=== PATIENT | female | born 1940 | race Asian ===

== ENCOUNTER 2020-11-14 18:52 | Emergency (ER) | payer MEDICARE ==
[2020-11-14 19:44] LABS: #Eosinphils 0.1 thou/uL (0.0-0.7); #Lymphocytes 1.6 thou/uL (1.20-3.40); #Monocytes 0.5 thou/uL (0.11-0.59); #Neutrophils 3.6 thou/uL (1.40-6.50); %Basophils 0.5 % (0.0-1.0); %Eosinophils 0.9 % (0.0-10.0); %Lymphocytes 27.9 % (21.0-51.0); %Monocytes 8.6 % (0.0-10.0); %Neutrophils 62.1 % (42.0-75.0); Hemoglobin 11.3 g/dL (12.0-16.0); Mean Corpuscular HGB CONC 31.1 g/dL (32.0-36.0); Mean Corpuscular Hemoglobin 23.5 pg (27.0-31.0); Mean Corpuscular Volume 75.7 fL (78.0-98.0); Mean Platelet Volume 8.3 fL (7.4-10.4); Platelet Count 288 thou/uL (130-400); RBC Distribution Width 13.3 % (11.5-14.5); Red Blood Cell (RBC) Count 4.79 mill/uL (4.20-5.40); White Blood Cell (WBC) Count 5.7 thou/uL (4.8-10.8)
[2020-11-14 19:50] LABS: PTT 33.3 sec (22.9-36.1)
[2020-11-14 20:13] LABS: ALT (SGPT) 18 U/L (8-55); AST (SGOT) 17 U/L (5-34); Albumin 3.5 g/dL (3.4-4.8); Alkaline Phosphatase 152 U/L (40-110); Anion Gap 13 mmol/L (10-20); BUN (Urea Nitrogen) 18 mg/dL (9.8-20.1); Bilirubin, Total 0.3 mg/dL (0.2-1.2); CK (CPK) 109 U/L (29-168); Calc. Creatinine Clearance 0 mL/min (70-130); Calcium 8.6 mg/dL (7.8-10.44); Carbon Dioxide 23 mmol/L (23-31); Chloride 108 mmol/L (98-107); Globulin 3.5 g/dL (2.4-3.5); Glucose 104 mg/dL (83-110); Lipase 27 U/L (8-78); Magnesium 2.2 mg/dL (1.6-2.6); Potassium 3.9 mmol/L (3.5-5.1); Sodium 140 mmol/L (136-145)
[2020-11-14 20:38] LABS: Bacteria/HPF 2+ HPF (None Seen); Bilirubin Negative (Negative); Blood, Urine Negative (Negative); Clarity Turbid (Clear); Glucose, Urine (Dipstick) Normal (Negative); Ketone, Urine Trace mg/dL (Negative); Leukocyte 25 Leu/uL (Negative); Nitrite 2+ (Negative); Protein, Urine (Dipstick) 10 mg/dL (Neg-Trace); RBC/HPF 0-3 HPF (0-3); Specific Gravity, Urine 1.027 (1.002-1.036); Squamous Epithelial 0-3 HPF (0-3); Urobilinogen Normal mg/dL (Less than 2)
== END 2020-11-14 23:57 ==
LOC: ERS 18:52
DX: S00.03XA Contusion of scalp, initial encounter (principal); N39.0 Urinary tract infection, site not specified; I10 Essential (primary) hypertension; W19.XXXA Unspecified fall, initial encounter
CPT/HCPCS: 36415; 51701; 70450; 71045; 72125; 80053; 81003; 81015; 82550; 83690; 83735; 85025; 85610; 85730; 87077; 87086; 87186; 93005

== ENCOUNTER 2020-11-21 09:49 | Emergency (ER) | payer MEDICARE | END 2020-11-21 11:10 | disposition home or self-care (01) | LOC: ERS 09:49 | DX: N39.0 Urinary tract infection, site not specified (principal); F03.90 Unspecified dementia, unspecified severity, without behavioral disturbance, psychotic disturbance, mood disturbance, and anxiety; I10 Essential (primary) hypertension; Z79.899 Other long term (current) drug therapy | CPT/HCPCS: 99283 ==

== ENCOUNTER 2021-05-03 13:57 | Inpatient (IN) | payer MEDICARE ==
[~2021-05-03 13:57] MED LIST: Iopamidol-370 76% 500 ML 1 ML ONE
[2021-05-03 14:29] LABS: Mean Corpuscular HGB CONC 32.4 g/dL (32.0-36.0); Platelet Count 276 thou/uL (130-400); RBC Distribution Width 13.6 % (11.5-14.5); Red Blood Cell (RBC) Count 5.01 mill/uL (4.20-5.40); White Blood Cell (WBC) Count 10.2 thou/uL (4.8-10.8)
[2021-05-03 14:40] LABS: Bacteria/HPF 2+ HPF (None Seen); Bilirubin Negative (Negative); Blood, Urine Negative (Negative); Clarity Turbid (Clear); Glucose, Urine (Dipstick) Normal (Negative); Ketone, Urine Negative (Negative); Leukocyte 250 Leu/uL (Negative); Nitrite Negative (Negative); Protein, Urine (Dipstick) 50 mg/dL (Neg-Trace); Specific Gravity, Urine 1.015 (1.002-1.036); Squamous Epithelial 0-3 HPF (0-3); pH, Urine 6.5 (5.0-9.0)
[2021-05-03 14:41] LABS: #Eosinphils 0.1 thou/uL (0.0-0.7); #Lymphocytes 1.7 thou/uL (1.20-3.40); #Monocytes 0.5 thou/uL (0.11-0.59); #Neutrophils 7.9 thou/uL (1.40-6.50); %Eosinophils 0.6 % (0.0-10.0); %Lymphocytes 16.4 % (21.0-51.0); %Monocytes 5.2 % (0.0-10.0); %Neutrophils 77.7 % (42.0-75.0)
[2021-05-03 14:42] LABS: ALT (SGPT) 18 U/L (8-55); AST (SGOT) 23 U/L (5-34); Albumin 3.6 g/dL (3.4-4.8); Alkaline Phosphatase 119 U/L (40-110); Anion Gap 15 mmol/L (10-20); BUN (Urea Nitrogen) 16 mg/dL (9.8-20.1); Bilirubin, Total 0.3 mg/dL (0.2-1.2); Calc. Creatinine Clearance 0 mL/min (70-130); Calcium 8.2 mg/dL (7.8-10.44); Carbon Dioxide 18 mmol/L (23-31); Chloride 90 mmol/L (98-107); Globulin 3.4 g/dL (2.4-3.5); Glucose 140 mg/dL (83-110); Potassium 4.2 mmol/L (3.5-5.1)
[2021-05-03 14:45] LABS: MDiff Complete? YES; Mean Corpuscular Volume 74.3 fL (78.0-98.0); Microcytosis SLIGHT = 6-15 cells (100X) (0-5/hpf); Platelet Morphology Comment Appears Adequate
[2021-05-03 14:47] LABS: Sodium 119 mmol/L (136-145)
[2021-05-03] MEDS ORDERED: Cefepime 2 GM VIAL ONE (15:01)
[2021-05-03] MEDS ORDERED: Vancomycin 1 GM/200 ML BAG ONE (15:01)
[2021-05-03] MEDS ORDERED: Morphine 4 MG/ML VIAL ONE (15:16)
[2021-05-03 16:50] LABS: SARS-CoV-2 NAA Rapid Test Not Detected (NotDetected)
[2021-05-03 17:43] LABS: Lactic Acid 1.9 mmol/L (0.5-2.2)
[2021-05-03] MEDS ORDERED: Acetaminophen 325 MG TAB PO PRN (18:57)
[2021-05-03] MEDS ORDERED: Acetaminophen 650 MG Suppository PR PRN (18:57)
[2021-05-03 20:10] LABS: INR-International Normal Ratio 0.9; Prothrombin Time 12.6 sec (12.0-14.7)
[2021-05-03 20:18] LABS: Sodium 122 mmol/L (136-145)
[2021-05-03] MEDS: Sodium Chloride 1 GM TAB PO SCH (21:40)
[2021-05-03 22:24] LABS: Creatinine, Urine 48.21 mg/dL (47-110); Potassium, Urine 65.6 mmol/L
[2021-05-03 23:30] LABS: Sodium 122 mmol/L (136-145)
[2021-05-03 23:36] LABS: Anion Gap 11 mmol/L (10-20); BUN (Urea Nitrogen) 11 mg/dL (9.8-20.1); Calc. Creatinine Clearance 0 mL/min (70-130); Calcium 8.2 mg/dL (7.8-10.44); Carbon Dioxide 20 mmol/L (23-31); Chloride 96 mmol/L (98-107); Glucose 99 mg/dL (83-110); Potassium 4.3 mmol/L (3.5-5.1); Sodium 123 mmol/L (136-145)
[2021-05-04] MEDS: Cefepime 2 GM in Sodium Chloride 0.9% 100 ML IVPB SCH ×2 (03:31→15:42)
[2021-05-04 03:59] LABS: #Monocytes 0.4 thou/uL (0.11-0.59); #Neutrophils 5.7 thou/uL (1.40-6.50); %Eosinophils 0.3 % (0.0-10.0); %Lymphocytes 13.4 % (21.0-51.0); %Monocytes 5.6 % (0.0-10.0); %Neutrophils 80.7 % (42.0-75.0); Hemoglobin 11.7 g/dL (12.0-16.0); Mean Corpuscular HGB CONC 32.7 g/dL (32.0-36.0); Mean Corpuscular Volume 73.3 fL (78.0-98.0); Platelet Count 243 thou/uL (130-400); RBC Distribution Width 13.5 % (11.5-14.5); Red Blood Cell (RBC) Count 4.87 mill/uL (4.20-5.40)
[2021-05-04 04:16] LABS: Anion Gap 10 mmol/L (10-20); BUN (Urea Nitrogen) 10 mg/dL (9.8-20.1); Calc. Creatinine Clearance 50 mL/min (70-130); Calcium 8.6 mg/dL (7.8-10.44); Carbon Dioxide 22 mmol/L (23-31); Chloride 97 mmol/L (98-107); Glucose 100 mg/dL (83-110); Potassium 4.3 mmol/L (3.5-5.1); Sodium 125 mmol/L (136-145)
[2021-05-04 06:39] LABS: Iron 26 ug/dL (50-170); Iron Binding Capacity, Total 294 mcg/dL (265-497)
[2021-05-04] MEDS ORDERED: traMADol HCl 50 MG TAB PO PRN (07:25)
[2021-05-04] MEDS ORDERED: Bisacodyl 5 MG TAB PO PRN (07:25)
[2021-05-04] MEDS ORDERED: Loperamide HCl 2 MG CAP PO PRN (07:25)
[2021-05-04] MEDS ORDERED: Proctozone-HC 30 GM TUBE TOP PRN (07:45)
[2021-05-04] MEDS ORDERED: Mag-Al Plus 1200 MG/1200 MG/120 MG/30 ML UDCUP PO PRN (07:51)
[2021-05-04] MEDS: Enoxaparin Sodium 40 MG/0.4 ML SYRINGE SC SCH (09:54)
[2021-05-04 10:54] LABS: Anion Gap 12 mmol/L (10-20); BUN (Urea Nitrogen) 9 mg/dL (9.8-20.1); Calc. Creatinine Clearance 50 mL/min (70-130); Calcium 8.7 mg/dL (7.8-10.44); Carbon Dioxide 20 mmol/L (23-31); Chloride 98 mmol/L (98-107); Glucose 94 mg/dL (83-110); Potassium 4.4 mmol/L (3.5-5.1); Sodium 126 mmol/L (136-145)
[2021-05-04] MEDS: Losartan 25 MG TAB PO SCH (11:32)
[2021-05-04] MEDS: Docusate 100 MG CAP PO SCH ×2 (11:32→20:51)
[2021-05-04] MEDS: Sodium Chloride 1 GM TAB PO SCH (11:33)
[2021-05-04] MEDS: Polyethylene Glycol 3350 17 GM Packet PO SCH (11:33)
[2021-05-04] MEDS ORDERED: Sodium Chloride 1 GM TAB PO SCH (15:00)
[2021-05-04 16:23] LABS: Anion Gap 11 mmol/L (10-20); BUN (Urea Nitrogen) 9 mg/dL (9.8-20.1); Calc. Creatinine Clearance 50 mL/min (70-130); Calcium 8.7 mg/dL (7.8-10.44); Carbon Dioxide 23 mmol/L (23-31); Chloride 100 mmol/L (98-107); Glucose 96 mg/dL (83-110); Sodium 130 mmol/L (136-145)
[2021-05-04] MEDS ORDERED: Dextrose 5% in Water 500 ML IV SCH (17:15)
[2021-05-04] MEDS: Aripiprazole 2 MG TAB PO SCH (20:51)
[2021-05-04] MEDS: Senokot S 8.6-50 MG TAB PO SCH (20:52)
[2021-05-04 23:32] LABS: Anion Gap 13 mmol/L (10-20); Calcium 8.6 mg/dL (7.8-10.44); Carbon Dioxide 17 mmol/L (23-31); Chloride 100 mmol/L (98-107); Potassium 3.8 mmol/L (3.5-5.1); Sodium 126 mmol/L (136-145)
[2021-05-04 23:33] LABS: Glucose 103 mg/dL (83-110)
[2021-05-04 23:36] LABS: Calc. Creatinine Clearance 50 mL/min (70-130)
[2021-05-04 23:37] LABS: BUN (Urea Nitrogen) 10 mg/dL (9.8-20.1)
[2021-05-05] MEDS: Cefepime 2 GM in Sodium Chloride 0.9% 100 ML IVPB SCH (02:39)
[2021-05-05 05:31] LABS: Albumin 3.6 g/dL (3.4-4.8); Anion Gap 12 mmol/L (10-20); BUN (Urea Nitrogen) 11 mg/dL (9.8-20.1); BUN/Creatinine Ratio 14.29; Calc. Creatinine Clearance 45 mL/min (70-130); Calcium 8.9 mg/dL (7.8-10.44); Carbon Dioxide 22 mmol/L (23-31); Chloride 99 mmol/L (98-107); Glucose 104 mg/dL (83-110); Phosphorus 3.2 mg/dL (2.3-4.7); Potassium 3.8 mmol/L (3.5-5.1); Sodium 129 mmol/L (136-145)
[2021-05-05] MEDS: Aripiprazole 2 MG TAB PO SCH (10:52)
[2021-05-05] MEDS: Polyethylene Glycol 3350 17 GM Packet PO SCH (10:52)
[2021-05-05] MEDS: Sodium Bicarbonate Tab 325 MG TAB PO SCH ×3 (10:53→22:09)
[2021-05-05] MEDS: Losartan 25 MG TAB PO SCH (10:53)
[2021-05-05] MEDS: Docusate 100 MG CAP PO SCH ×2 (10:54→22:09)
[2021-05-05] MEDS: Enoxaparin Sodium 40 MG/0.4 ML SYRINGE SC SCH (11:05)
[2021-05-05 11:35] LABS: Anion Gap 14 mmol/L (10-20); BUN (Urea Nitrogen) 11 mg/dL (9.8-20.1); Calc. Creatinine Clearance 46 mL/min (70-130); Calcium 9.1 mg/dL (7.8-10.44); Carbon Dioxide 19 mmol/L (23-31); Chloride 98 mmol/L (98-107); Glucose 99 mg/dL (83-110); Potassium 4.3 mmol/L (3.5-5.1); Sodium 127 mmol/L (136-145)
[2021-05-05] MEDS ORDERED: Sodium Chloride 1 GM TAB PO SCH (16:15)
[2021-05-05 18:22] LABS: Anion Gap 12 mmol/L (10-20); BUN (Urea Nitrogen) 12 mg/dL (9.8-20.1); Calc. Creatinine Clearance 47 mL/min (70-130); Calcium 8.8 mg/dL (7.8-10.44); Carbon Dioxide 20 mmol/L (23-31); Chloride 101 mmol/L (98-107); Glucose 120 mg/dL (83-110); Potassium 3.5 mmol/L (3.5-5.1); Sodium 129 mmol/L (136-145)
[2021-05-05] MEDS: Nitrofurantoin Monohyd/M-Cryst 100 MG CAP PO SCH (21:59)
[2021-05-05] MEDS: Senokot S 8.6-50 MG TAB PO SCH (22:04)
[2021-05-05] MEDS: Sodium Chloride 1 GM TAB PO SCH (22:05)
[2021-05-06] MEDS ORDERED: Cefepime 2 GM in Sodium Chloride 0.9% 100 ML IVPB SCH (03:00)
[2021-05-06 06:42] LABS: Albumin 3.6 g/dL (3.4-4.8); Anion Gap 13 mmol/L (10-20); BUN (Urea Nitrogen) 15 mg/dL (9.8-20.1); BUN/Creatinine Ratio 18.29; Calc. Creatinine Clearance 38 mL/min (70-130); Calcium 8.9 mg/dL (7.8-10.44); Carbon Dioxide 24 mmol/L (23-31); Chloride 99 mmol/L (98-107); Glucose 87 mg/dL (83-110); Phosphorus 3.6 mg/dL (2.3-4.7); Potassium 3.5 mmol/L (3.5-5.1); Sodium 132 mmol/L (136-145)
[2021-05-06] MEDS ORDERED: Vancomycin HCl 750 MG in Sodium Chloride 0.9% 250 ML 250 ML IVPB SCH (09:00)
[2021-05-06] MEDS ORDERED: Vancomycin 1 GM in Premix Bag 1 BAG IVPB SCH (09:00)
[2021-05-06] MEDS: Polyethylene Glycol 3350 17 GM Packet PO SCH (09:17)
[2021-05-06] MEDS: Docusate 100 MG CAP PO SCH ×2 (09:17→20:44)
[2021-05-06] MEDS: Enoxaparin Sodium 40 MG/0.4 ML SYRINGE SC SCH (10:45)
[2021-05-06] MEDS: Sodium Bicarbonate Tab 325 MG TAB PO SCH ×3 (10:45→20:44)
[2021-05-06] MEDS: Nitrofurantoin Monohyd/M-Cryst 100 MG CAP PO SCH ×2 (10:45→20:44)
[2021-05-06] MEDS: Amlodipine 10 MG TAB PO SCH (10:45)
[2021-05-06] MEDS: Losartan 25 MG TAB PO SCH (10:45)
[2021-05-06] MEDS: Sodium Chloride 1 GM TAB PO SCH ×3 (10:45→20:44)
[2021-05-06] MEDS: Aripiprazole 2 MG TAB PO SCH (20:43)
[2021-05-06] MEDS: Senokot S 8.6-50 MG TAB PO SCH (20:44)
[2021-05-07 05:44] LABS: Albumin 3.5 g/dL (3.4-4.8); Anion Gap 14 mmol/L (10-20); BUN (Urea Nitrogen) 19 mg/dL (9.8-20.1); BUN/Creatinine Ratio 25.33; Calc. Creatinine Clearance 42 mL/min (70-130); Carbon Dioxide 21 mmol/L (23-31); Chloride 103 mmol/L (98-107); Glucose 88 mg/dL (83-110); Phosphorus 3.7 mg/dL (2.3-4.7); Potassium 3.5 mmol/L (3.5-5.1); Sodium 134 mmol/L (136-145)
[2021-05-07] MEDS: Amlodipine 10 MG TAB PO SCH (09:05)
[2021-05-07] MEDS: Losartan 25 MG TAB PO SCH (09:05)
[2021-05-07] MEDS: Nitrofurantoin Monohyd/M-Cryst 100 MG CAP PO SCH ×2 (09:05→21:00)
[2021-05-07] MEDS: Docusate 100 MG CAP PO SCH ×2 (09:05→21:00)
[2021-05-07] MEDS: Sodium Bicarbonate Tab 325 MG TAB PO SCH ×3 (09:05→21:00)
[2021-05-07] MEDS: Enoxaparin Sodium 40 MG/0.4 ML SYRINGE SC SCH (09:07)
[2021-05-07 09:08] LABS: Anion Gap 14 mmol/L (10-20); BUN (Urea Nitrogen) 19 mg/dL (9.8-20.1); Calc. Creatinine Clearance 41 mL/min (70-130); Calcium 9.1 mg/dL (7.8-10.44); Carbon Dioxide 22 mmol/L (23-31); Chloride 104 mmol/L (98-107); Glucose 90 mg/dL (83-110); Potassium 3.9 mmol/L (3.5-5.1); Sodium 136 mmol/L (136-145)
[2021-05-07] MEDS: Polyethylene Glycol 3350 17 GM Packet PO SCH (09:08)
[2021-05-07] MEDS: Sodium Chloride 1 GM TAB PO SCH ×3 (09:10→21:00)
[2021-05-07] MEDS: Aripiprazole 2 MG TAB PO SCH (21:00)
[2021-05-07] MEDS: Senokot S 8.6-50 MG TAB PO SCH (21:00)
[2021-05-08 08:08] LABS: Anion Gap 14 mmol/L (10-20); BUN (Urea Nitrogen) 23 mg/dL (9.8-20.1); Calc. Creatinine Clearance 44 mL/min (70-130); Calcium 9.1 mg/dL (7.8-10.44); Carbon Dioxide 22 mmol/L (23-31); Chloride 106 mmol/L (98-107); Glucose 83 mg/dL (83-110); Potassium 3.5 mmol/L (3.5-5.1); Sodium 138 mmol/L (136-145)
[2021-05-08 08:23] LABS: #Basophils 0.1 thou/uL (0.0-0.2); #Lymphocytes 1.3 thou/uL (1.20-3.40); #Monocytes 0.4 thou/uL (0.11-0.59); #Neutrophils 3.2 thou/uL (1.40-6.50); %Basophils 1.4 % (0.0-1.0); %Eosinophils 0.5 % (0.0-10.0); %Lymphocytes 25.8 % (21.0-51.0); %Monocytes 7.9 % (0.0-10.0); %Neutrophils 64.5 % (42.0-75.0); Hemoglobin 12.9 g/dL (12.0-16.0); Mean Corpuscular HGB CONC 31.3 g/dL (32.0-36.0); Mean Corpuscular Hemoglobin 23.5 pg (27.0-31.0); Mean Corpuscular Volume 75.1 fL (78.0-98.0); Mean Platelet Volume 7.4 fL (7.4-10.4); Platelet Count 301 thou/uL (130-400); RBC Distribution Width 13.7 % (11.5-14.5); Red Blood Cell (RBC) Count 5.51 mill/uL (4.20-5.40)
[2021-05-08] MEDS: Sodium Bicarbonate Tab 325 MG TAB PO SCH ×2 (08:45→14:49)
[2021-05-08] MEDS: Sodium Chloride 1 GM TAB PO SCH ×2 (08:45→14:49)
[2021-05-08] MEDS: Losartan 25 MG TAB PO SCH (08:45)
[2021-05-08] MEDS: Docusate 100 MG CAP PO SCH (08:46)
[2021-05-08] MEDS: Enoxaparin Sodium 40 MG/0.4 ML SYRINGE SC SCH (08:46)
[2021-05-08] MEDS: Nitrofurantoin Monohyd/M-Cryst 100 MG CAP PO SCH ×2 (08:46→18:36)
[2021-05-08] MEDS: Amlodipine 10 MG TAB PO SCH (08:46)
[2021-05-08] MEDS: Polyethylene Glycol 3350 17 GM Packet PO SCH (08:46)
[2021-05-08 11:13] VITALS: BMI 16.9
[2021-05-08 15:37] VITALS: BP 142/89; TEMP 98.6
== END 2021-05-08 20:02 | DRG 640 ==
LOC: SUATTDRO 13:57 → ERS 13:57 → CCU 18:57 → 2NO 05-04 16:28 → T4-A 05-07 17:51
PROVIDERS: ADMIT Hospitalist; ATTEND Hospitalist
DX: E87.1 Hypo-osmolality and hyponatremia (principal); G93.41 Metabolic encephalopathy; N39.0 Urinary tract infection, site not specified; F02.81 Dementia in other diseases classified elsewhere, unspecified severity, with behavioral disturbance; F05 Delirium due to known physiological condition; Z66 Do not resuscitate; Z20.822 Contact with and (suspected) exposure to COVID-19; E87.2 Acidosis; G30.9 Alzheimer's disease, unspecified; B96.20 Unspecified Escherichia coli [E. coli] as the cause of diseases classified elsewhere; I08.1 Rheumatic disorders of both mitral and tricuspid valves; E86.9 Volume depletion, unspecified; G31.83 Neurocognitive disorder with Lewy bodies; E04.1 Nontoxic single thyroid nodule; R29.898 Other symptoms and signs involving the musculoskeletal system; D56.3 Thalassemia minor; R13.10 Dysphagia, unspecified; I08.3 Combined rheumatic disorders of mitral, aortic and tricuspid valves; R47.1 Dysarthria and anarthria; R49.0 Dysphonia; Z78.1 Physical restraint status; Z88.2 Allergy status to sulfonamides; Z91.013 Allergy to seafood; Z79.899 Other long term (current) drug therapy; Z90.710 Acquired absence of both cervix and uterus; Z90.722 Acquired absence of ovaries, bilateral; Z82.49 Family history of ischemic heart disease and other diseases of the circulatory system; Z87.440 Personal history of urinary (tract) infections
CPT/HCPCS: 36415; 51701; 70450; 70496; 70498; 71045; 80048; 80053; 80069; 81003; 81015; 82570; 82728; 83540; 83550; 83605; 83930; 83935; 84133; 84156; 84295; 84300; 84484; 85025; 85610; 87040; 87077; 87086; 87149; 87186; 93005; 93010; 93306; 96365; 96366; 96367; 96375; J0692; J1650; J2270; J3370; J3490; J7050; J7070; Q9967; U0002

== ENCOUNTER 2021-05-14 12:38 | Inpatient (IN) | payer MEDICARE ==
[2021-05-14 14:37] LABS: #Basophils 0.1 thou/uL (0.0-0.2); #Lymphocytes 1.6 thou/uL (1.20-3.40); #Monocytes 0.7 thou/uL (0.11-0.59); #Neutrophils 6.8 thou/uL (1.40-6.50); %Basophils 0.8 % (0.0-1.0); %Eosinophils 0.2 % (0.0-10.0); %Lymphocytes 17.2 % (21.0-51.0); %Monocytes 7.3 % (0.0-10.0); %Neutrophils 74.5 % (42.0-75.0); Hemoglobin 14.6 g/dL (12.0-16.0); Mean Corpuscular Hemoglobin 24.5 pg (27.0-31.0); Mean Corpuscular Volume 76.7 fL (78.0-98.0); Mean Platelet Volume 8.6 fL (7.4-10.4); Platelet Count 276 thou/uL (130-400); Red Blood Cell (RBC) Count 5.94 mill/uL (4.20-5.40); White Blood Cell (WBC) Count 9.2 thou/uL (4.8-10.8)
[2021-05-14 15:16] LABS: Bacteria/HPF None Seen HPF (None Seen); Bilirubin Negative (Negative); Blood, Urine Negative (Negative); Clarity Clear (Clear); Glucose, Urine (Dipstick) Normal (Negative); Ketone, Urine 10 mg/dL (Negative); Leukocyte Negative Leu/uL (Negative); Nitrite Negative (Negative); Protein, Urine (Dipstick) 30 mg/dL (Neg-Trace); RBC/HPF 0-3 HPF (0-3); Specific Gravity, Urine 1.027 (1.002-1.036); Squamous Epithelial 0-3 HPF (0-3); Urobilinogen Normal mg/dL (Less than 2); WBC/HPF 0-3 HPF (0-3); pH, Urine 5.5 (5.0-9.0)
[2021-05-14] MEDS ORDERED: Lorazepam 2 MG/ML VIAL ONE (16:28)
[2021-05-14 16:34] LABS: Albumin 4.2 g/dL (3.4-4.8)
[2021-05-14 16:36] LABS: Calcium 9.4 mg/dL (7.8-10.44); Chloride 117 mmol/L (98-107); Potassium 3.8 mmol/L (3.5-5.1); Sodium 150 mmol/L (136-145)
[2021-05-14 16:37] LABS: Globulin 3.9 g/dL (2.4-3.5); Glucose 92 mg/dL (83-110); Protein, Total 8.1 g/dL (5.8-8.1)
[2021-05-14 16:38] LABS: Anion Gap 16 mmol/L (10-20); Carbon Dioxide 21 mmol/L (23-31)
[2021-05-14 16:39] LABS: Bilirubin, Total 1.1 mg/dL (0.2-1.2)
[2021-05-14 16:40] LABS: Alkaline Phosphatase 98 U/L (40-110); Calc. Creatinine Clearance 0 mL/min (70-130)
[2021-05-14 16:41] LABS: BUN (Urea Nitrogen) 44 mg/dL (9.8-20.1)
[2021-05-14 16:42] LABS: AST (SGOT) 35 U/L (5-34); Magnesium 2.8 mg/dL (1.6-2.6)
[2021-05-14 16:43] LABS: ALT (SGPT) 39 U/L (8-55); Lipase 32 U/L (8-78)
[2021-05-14] MEDS ORDERED: Dextrose 5 %-0.45 % NaCl 1,000 ML IV SCH (19:30)
[2021-05-14] MEDS ORDERED: Bisacodyl 10 MG SUPP PR PRN (20:46)
[2021-05-14] MEDS ORDERED: Acetaminophen 325 MG TAB PO PRN (20:46)
[2021-05-14] MEDS ORDERED: Ondansetron PF 4 MG/2 ML Vial IVP PRN (20:46)
[2021-05-14] MEDS ORDERED: Ondansetron ODT 4 MG TAB PO PRN (20:46)
[2021-05-14] MEDS ORDERED: Acetaminophen 650 MG Suppository PR PRN (20:46)
[2021-05-14] MEDS ORDERED: Famotidine/PF 20 mg/2ml Vial SLOW IVP SCH (21:00)
[2021-05-14 21:02] LABS: SARS-CoV-2 NAA Rapid Test DETECTED (NotDetected)
[2021-05-14 21:37] LABS: #Lymphocytes 1.7 thou/uL (1.20-3.40); #Monocytes 0.8 thou/uL (0.11-0.59); #Neutrophils 5.6 thou/uL (1.40-6.50); %Basophils 0.4 % (0.0-1.0); %Eosinophils 0.6 % (0.0-10.0); Hemoglobin 13.9 g/dL (12.0-16.0); Mean Corpuscular HGB CONC 31.4 g/dL (32.0-36.0); Mean Corpuscular Volume 76.4 fL (78.0-98.0); Platelet Count 233 thou/uL (130-400); RBC Distribution Width 13.8 % (11.5-14.5); Red Blood Cell (RBC) Count 5.79 mill/uL (4.20-5.40); White Blood Cell (WBC) Count 8.3 thou/uL (4.8-10.8)
[2021-05-15] MEDS ORDERED: Dextrose 10% in Water 1,000 ML IV SCH (00:30)
[2021-05-15 00:32] LABS: Anion Gap 12 mmol/L (10-20); BUN (Urea Nitrogen) 40 mg/dL (9.8-20.1); Calc. Creatinine Clearance 0 mL/min (70-130); Calcium 9.2 mg/dL (7.8-10.44); Carbon Dioxide 23 mmol/L (23-31); Chloride 118 mmol/L (98-107); Glucose 128 mg/dL (83-110); Potassium 3.4 mmol/L (3.5-5.1); Sodium 150 mmol/L (136-145)
[2021-05-15] MEDS ORDERED: FLU VACC QS2021-22(65YR UP)/PF 240 MCG/0.7 ML SYRINGE IM ONE (01:30)
[2021-05-15 01:51] LABS: Anion Gap 15 mmol/L (10-20); BUN (Urea Nitrogen) 40 mg/dL (9.8-20.1); Calc. Creatinine Clearance 34 mL/min (70-130); Calcium 8.8 mg/dL (7.8-10.44); Carbon Dioxide 20 mmol/L (23-31); Chloride 118 mmol/L (98-107); Glucose 129 mg/dL (83-110); Potassium 3.4 mmol/L (3.5-5.1); Sodium 150 mmol/L (136-145)
[2021-05-15] MEDS ORDERED: Lorazepam 2 MG/ML VIAL SLOW IVP SCH (02:00)
[2021-05-15] MEDS ORDERED: Potassium Chloride 20 MEQ in Premix Bag 1 BAG IVPB SCH (05:00)
[2021-05-15] MEDS: Dextrose 5% in Water 1,000 ML IV SCH ×3 (06:26→21:04)
[2021-05-15] MEDS: Ascorbic Acid 500 mg Chewable Tablet PO SCH (08:54)
[2021-05-15] MEDS: Famotidine/PF 20 mg/2ml Vial SLOW IVP SCH (08:54)
[2021-05-15] MEDS: Zinc Sulfate 220 MG CAP PO SCH (08:55)
[2021-05-15] MEDS ORDERED: Lorazepam 1 MG TAB PO PRN (12:55)
[2021-05-15 13:15] LABS: Albumin 3.6 g/dL (3.4-4.8); Anion Gap 13 mmol/L (10-20); BUN (Urea Nitrogen) 37 mg/dL (9.8-20.1); BUN/Creatinine Ratio 37.76; Calc. Creatinine Clearance 33 mL/min (70-130); Calcium 8.9 mg/dL (7.8-10.44); Carbon Dioxide 23 mmol/L (23-31); Chloride 114 mmol/L (98-107); Glucose 108 mg/dL (83-110); Magnesium 2.6 mg/dL (1.6-2.6); Phosphorus 2.5 mg/dL (2.3-4.7); Potassium 3.7 mmol/L (3.5-5.1); Sodium 146 mmol/L (136-145)
[2021-05-15] MEDS: Aripiprazole 2 MG TAB PO SCH ×2 (21:01)
[2021-05-15] MEDS: Heparin 5,000 UNITS/ML VIAL SC SCH (21:01)
[2021-05-16] MEDS ORDERED: ESOMEPRAZOLE MAGNESIUM 20 MG PO SCH (09:00)
[2021-05-16] MEDS: Lorazepam 2 MG/ML VIAL SLOW IVP PRN ×2 (09:56→21:14)
[2021-05-16] MEDS: Heparin 5,000 UNITS/ML VIAL SC SCH ×2 (09:58→21:11)
[2021-05-16] MEDS: Famotidine/PF 20 mg/2ml Vial SLOW IVP SCH (09:58)
[2021-05-16 10:43] LABS: #Eosinphils 0.1 thou/uL (0.0-0.7); #Lymphocytes 1.5 thou/uL (1.20-3.40); #Monocytes 0.4 thou/uL (0.11-0.59); #Neutrophils 5.2 thou/uL (1.40-6.50); %Basophils 0.7 % (0.0-1.0); %Eosinophils 1.1 % (0.0-10.0); %Lymphocytes 20.3 % (21.0-51.0); %Neutrophils 71.9 % (42.0-75.0); Hemoglobin 12.7 g/dL (12.0-16.0); Mean Corpuscular HGB CONC 31.8 g/dL (32.0-36.0); Mean Corpuscular Hemoglobin 24.5 pg (27.0-31.0); Mean Corpuscular Volume 77.2 fL (78.0-98.0); Mean Platelet Volume 8.4 fL (7.4-10.4); Platelet Count 222 thou/uL (130-400); RBC Distribution Width 13.5 % (11.5-14.5); Red Blood Cell (RBC) Count 5.17 mill/uL (4.20-5.40); White Blood Cell (WBC) Count 7.3 thou/uL (4.8-10.8)
[2021-05-16 11:07] LABS: Anion Gap 16 mmol/L (10-20); BUN (Urea Nitrogen) 28 mg/dL (9.8-20.1); Calc. Creatinine Clearance 39 mL/min (70-130); Calcium 8.8 mg/dL (7.8-10.44); Carbon Dioxide 16 mmol/L (23-31); Chloride 112 mmol/L (98-107); Glucose 94 mg/dL (83-110); Potassium 3.7 mmol/L (3.5-5.1); Sodium 140 mmol/L (136-145)
[2021-05-16] MEDS: Zinc Sulfate 220 MG CAP PO SCH (11:44)
[2021-05-16] MEDS: Ascorbic Acid 500 mg Chewable Tablet PO SCH (11:44)
[2021-05-16] MEDS ORDERED: Ziprasidone 20 MG VIAL IM PRN (11:50)
[2021-05-16] MEDS ORDERED: Ziprasidone 20 MG VIAL IM SCH (12:00)
[2021-05-16] MEDS ORDERED: D5W-AA 4.25% with LYTES 1,000 ML BAG IV SCH (12:00)
[2021-05-16] MEDS ORDERED: Multivit, Adult Inj 10 ML VIAL IV SCH (12:15)
[2021-05-16] MEDS ORDERED: Sodium Bicarbonate 50 MEQ in Dextrose 5% in Water 1,000 ML IV SCH (12:15)
[2021-05-16] MEDS: D5W-AA 4.25% with LYTES 1,000 ML IV SCH (12:39)
[2021-05-16] MEDS: Aripiprazole 2 MG TAB PO SCH (21:10)
[2021-05-17 04:46] LABS: #Basophils 0.1 thou/uL (0.0-0.2); #Eosinphils 0.1 thou/uL (0.0-0.7); #Lymphocytes 1.8 thou/uL (1.20-3.40); #Monocytes 0.4 thou/uL (0.11-0.59); #Neutrophils 2.7 thou/uL (1.40-6.50); %Basophils 1.1 % (0.0-1.0); %Eosinophils 1.6 % (0.0-10.0); %Lymphocytes 36.5 % (21.0-51.0); %Monocytes 7.5 % (0.0-10.0); %Neutrophils 53.3 % (42.0-75.0); Mean Corpuscular HGB CONC 31.8 g/dL (32.0-36.0); Mean Corpuscular Hemoglobin 24.6 pg (27.0-31.0); Mean Corpuscular Volume 77.4 fL (78.0-98.0); Mean Platelet Volume 8.6 fL (7.4-10.4); Platelet Count 188 thou/uL (130-400); RBC Distribution Width 13.4 % (11.5-14.5); Red Blood Cell (RBC) Count 4.46 mill/uL (4.20-5.40)
[2021-05-17 05:08] LABS: ALT (SGPT) 22 U/L (8-55); AST (SGOT) 16 U/L (5-34); Albumin 2.9 g/dL (3.4-4.8); Alkaline Phosphatase 71 U/L (40-110); Anion Gap 10 mmol/L (10-20); BUN (Urea Nitrogen) 27 mg/dL (9.8-20.1); Bilirubin, Total 0.6 mg/dL (0.2-1.2); CRP (Inflammatory) 0.68 mg/dL (= or < 0.5); Calc. Creatinine Clearance 41 mL/min (70-130); Calcium 8.1 mg/dL (7.8-10.44); Carbon Dioxide 23 mmol/L (23-31); Chloride 106 mmol/L (98-107); Glucose 107 mg/dL (83-110); Potassium 3.2 mmol/L (3.5-5.1); Protein, Total 5.9 g/dL (5.8-8.1); Sodium 136 mmol/L (136-145)
[2021-05-17] MEDS ORDERED: Potassium Chloride 20 MEQ in Premix Bag 1 BAG IVPB SCH (06:00)
[2021-05-17] MEDS ORDERED: Sodium Chloride 0.9% 500 ML IVPB SCH (06:15)
[2021-05-17 06:30] LABS: Magnesium 2.2 mg/dL (1.6-2.6)
[2021-05-17] MEDS ORDERED: Potassium Chloride 20 MEQ TAB PO SCH (07:15)
[2021-05-17] MEDS ORDERED: Potassium Bicarbonate/Cit Ac 20 MEQ TAB PO SCH (08:15)
[2021-05-17] MEDS: Aspirin 81 mg Enteric Coated Tablet PO SCH (09:15)
[2021-05-17] MEDS: Heparin 5,000 UNITS/ML VIAL SC SCH ×2 (09:16→20:30)
[2021-05-17] MEDS: Ascorbic Acid 500 mg Chewable Tablet PO SCH (09:16)
[2021-05-17] MEDS: Zinc Sulfate 220 MG CAP PO SCH (09:16)
[2021-05-17] MEDS: D5W-AA 4.25% with LYTES 1,000 ML IV SCH (13:23)
[2021-05-17] MEDS ORDERED: Lorazepam 0.5 MG TAB PO PRN (15:45)
[2021-05-17] MEDS ORDERED: Lorazepam 2 MG/ML VIAL SLOW IVP PRN (15:54)
[2021-05-17] MEDS: Aripiprazole 2 MG TAB PO SCH (20:29)
[2021-05-18] MEDS: Heparin 5,000 UNITS/ML VIAL SC SCH ×2 (08:08→21:37)
[2021-05-18] MEDS: Ascorbic Acid 500 mg Chewable Tablet PO SCH ×2 (08:08→09:26)
[2021-05-18] MEDS: Aspirin 81 mg Enteric Coated Tablet PO SCH ×2 (08:08→09:26)
[2021-05-18] MEDS: Zinc Sulfate 220 MG CAP PO SCH ×2 (08:08→09:26)
[2021-05-18 08:56] LABS: #Eosinphils 0.1 thou/uL (0.0-0.7); #Lymphocytes 1.7 thou/uL (1.20-3.40); #Monocytes 0.5 thou/uL (0.11-0.59); %Basophils 0.2 % (0.0-1.0); %Eosinophils 2.1 % (0.0-10.0); %Lymphocytes 32.1 % (21.0-51.0); %Monocytes 9.5 % (0.0-10.0); %Neutrophils 56.1 % (42.0-75.0); Hemoglobin 11.2 g/dL (12.0-16.0); Mean Corpuscular HGB CONC 32.5 g/dL (32.0-36.0); Mean Corpuscular Hemoglobin 24.8 pg (27.0-31.0); Mean Corpuscular Volume 76.3 fL (78.0-98.0); Mean Platelet Volume 10.1 fL (7.4-10.4); Platelet Count 170 thou/uL (130-400); RBC Distribution Width 13.3 % (11.5-14.5); White Blood Cell (WBC) Count 5.4 thou/uL (4.8-10.8)
[2021-05-18 09:19] LABS: MDiff Complete? YES; Microcytosis SLIGHT = 6-15 cells (100X) (0-5/hpf); Platelet Morphology Comment Appears Adequate; Polychromasia SLIGHT = 2-3 cells (100X) (0-2/hpf)
[2021-05-18] MEDS: D5W-AA 4.25% with LYTES 1,000 ML IV SCH (09:54)
[2021-05-18 14:07] LABS: ALT (SGPT) 22 U/L (8-55); AST (SGOT) 17 U/L (5-34); Albumin 3.1 g/dL (3.4-4.8); Alkaline Phosphatase 74 U/L (40-110); Anion Gap 10 mmol/L (10-20); BUN (Urea Nitrogen) 20 mg/dL (9.8-20.1); Bilirubin, Total 0.4 mg/dL (0.2-1.2); Calc. Creatinine Clearance 47 mL/min (70-130); Calcium 8.6 mg/dL (7.8-10.44); Carbon Dioxide 25 mmol/L (23-31); Chloride 104 mmol/L (98-107); Globulin 3.1 g/dL (2.4-3.5); Glucose 105 mg/dL (83-110); Potassium 4.3 mmol/L (3.5-5.1); Protein, Total 6.2 g/dL (5.8-8.1); Sodium 135 mmol/L (136-145)
[2021-05-18] MEDS ORDERED: Ziprasidone 20 MG VIAL IM PRN (14:57)
[2021-05-18] MEDS ORDERED: Lorazepam 2 MG/ML VIAL SLOW IVP PRN (14:57)
[2021-05-18] MEDS ORDERED: Lorazepam 0.5 MG TAB PO PRN (15:08)
[2021-05-18] MEDS ORDERED: Sterile Water 10 ML VIAL FS PRN (15:30)
[2021-05-18] MEDS: OLANZapine 10 MG VIAL IM SCH (21:38)
[2021-05-18] MEDS: OLANZapine 5 MG TAB PO SCH (21:39)
[2021-05-19] MEDS: D5W-AA 4.25% with LYTES 1,000 ML IV SCH (05:14)
[2021-05-19] MEDS ORDERED: Aripiprazole 2 MG TAB PO SCH (09:00)
[2021-05-19] MEDS: Aspirin 81 mg Enteric Coated Tablet PO SCH (10:25)
[2021-05-19] MEDS: Heparin 5,000 UNITS/ML VIAL SC SCH ×2 (10:25→21:04)
[2021-05-19] MEDS: Ascorbic Acid 500 mg Chewable Tablet PO SCH (10:25)
[2021-05-19] MEDS: OLANZapine 5 MG TAB PO SCH ×2 (10:29→21:05)
[2021-05-19] MEDS: OLANZapine 10 MG VIAL IM SCH ×2 (10:29→21:05)
[2021-05-19] MEDS: Zinc Sulfate 220 MG CAP PO SCH (10:35)
[2021-05-19 13:41] LABS: #Eosinphils 0.2 thou/uL (0.0-0.7); #Lymphocytes 1.7 thou/uL (1.20-3.40); #Monocytes 0.8 thou/uL (0.11-0.59); #Neutrophils 5.5 thou/uL (1.40-6.50); %Basophils 0.2 % (0.0-1.0); %Eosinophils 2.1 % (0.0-10.0); %Lymphocytes 20.6 % (21.0-51.0); %Monocytes 9.5 % (0.0-10.0); %Neutrophils 67.7 % (42.0-75.0); Hemoglobin 11.5 g/dL (12.0-16.0); Mean Corpuscular HGB CONC 31.3 g/dL (32.0-36.0); Mean Corpuscular Hemoglobin 24.7 pg (27.0-31.0); Mean Platelet Volume 9.3 fL (7.4-10.4); Platelet Count 179 thou/uL (130-400); RBC Distribution Width 13.5 % (11.5-14.5); Red Blood Cell (RBC) Count 4.67 mill/uL (4.20-5.40); White Blood Cell (WBC) Count 8.1 thou/uL (4.8-10.8)
[2021-05-19 14:01] LABS: Anion Gap 15 mmol/L (10-20); BUN (Urea Nitrogen) 18 mg/dL (9.8-20.1); Calc. Creatinine Clearance 47 mL/min (70-130); Calcium 8.6 mg/dL (7.8-10.44); Carbon Dioxide 21 mmol/L (23-31); Chloride 102 mmol/L (98-107); Glucose 99 mg/dL (83-110); Magnesium 2.1 mg/dL (1.6-2.6); Phosphorus 3.3 mg/dL (2.3-4.7); Potassium 4.8 mmol/L (3.5-5.1); Sodium 133 mmol/L (136-145)
[2021-05-20] MEDS: D5W-AA 4.25% with LYTES 1,000 ML IV SCH (03:39)
[2021-05-20 09:20] LABS: #Eosinphils 0.1 thou/uL (0.0-0.7); #Lymphocytes 1.3 thou/uL (1.20-3.40); #Monocytes 0.5 thou/uL (0.11-0.59); #Neutrophils 3.6 thou/uL (1.40-6.50); %Basophils 0.5 % (0.0-1.0); %Eosinophils 2.1 % (0.0-10.0); %Monocytes 9.4 % (0.0-10.0); Hemoglobin 11.6 g/dL (12.0-16.0); Mean Corpuscular HGB CONC 31.1 g/dL (32.0-36.0); Mean Corpuscular Hemoglobin 24.1 pg (27.0-31.0); Mean Corpuscular Volume 77.6 fL (78.0-98.0); Platelet Count 203 thou/uL (130-400); RBC Distribution Width 13.3 % (11.5-14.5); White Blood Cell (WBC) Count 5.5 thou/uL (4.8-10.8)
[2021-05-20] MEDS: Zinc Sulfate 220 MG CAP PO SCH ×2 (09:23→09:25)
[2021-05-20] MEDS: OLANZapine 5 MG TAB PO SCH ×2 (09:24→09:25)
[2021-05-20] MEDS: Aspirin 81 mg Enteric Coated Tablet PO SCH ×2 (09:25)
[2021-05-20] MEDS: Heparin 5,000 UNITS/ML VIAL SC SCH ×2 (09:25→20:47)
[2021-05-20] MEDS: Ascorbic Acid 500 mg Chewable Tablet PO SCH ×2 (09:25→09:26)
[2021-05-20 09:32] LABS: Anion Gap 12 mmol/L (10-20); BUN (Urea Nitrogen) 17 mg/dL (9.8-20.1); Calc. Creatinine Clearance 51 mL/min (70-130); Calcium 8.9 mg/dL (7.8-10.44); Carbon Dioxide 24 mmol/L (23-31); Chloride 102 mmol/L (98-107); Glucose 92 mg/dL (83-110); Phosphorus 3.4 mg/dL (2.3-4.7); Potassium 4.5 mmol/L (3.5-5.1); Sodium 133 mmol/L (136-145)
[2021-05-20] MEDS: OLANZapine 10 MG VIAL IM SCH ×2 (15:26→20:48)
[2021-05-21] MEDS: Lorazepam 2 MG/ML VIAL SLOW IVP PRN ×2 (01:11→15:32)
[2021-05-21] MEDS ORDERED: AA 4.25 %/CALCIUM/LYTES/D5W 2,000 ML IV SCH (05:30)
[2021-05-21] MEDS: OLANZapine 10 MG VIAL IM SCH ×2 (09:26→21:00)
[2021-05-21] MEDS: Heparin 5,000 UNITS/ML VIAL SC SCH ×2 (09:35→20:25)
[2021-05-21] MEDS: Aspirin 81 mg Enteric Coated Tablet PO SCH (11:17)
[2021-05-21] MEDS: Ascorbic Acid 500 mg Chewable Tablet PO SCH (11:17)
[2021-05-21] MEDS: Zinc Sulfate 220 MG CAP PO SCH (11:17)
[2021-05-21] MEDS: OLANZapine 5 MG TAB PO SCH (20:25)
[2021-05-22 05:26] LABS: Anion Gap 13 mmol/L (10-20); BUN (Urea Nitrogen) 21 mg/dL (9.8-20.1); Calc. Creatinine Clearance 49 mL/min (70-130); Calcium 8.5 mg/dL (7.8-10.44); Carbon Dioxide 19 mmol/L (23-31); Chloride 101 mmol/L (98-107); Glucose 89 mg/dL (83-110); Magnesium 2.2 mg/dL (1.6-2.6); Potassium 5.4 mmol/L (3.5-5.1); Sodium 128 mmol/L (136-145)
[2021-05-22 07:01] LABS: Phosphorus 4.2 mg/dL (2.3-4.7)
[2021-05-22] MEDS: Aspirin 81 mg Enteric Coated Tablet PO SCH (08:27)
[2021-05-22] MEDS: Ascorbic Acid 500 mg Chewable Tablet PO SCH (08:27)
[2021-05-22] MEDS: Heparin 5,000 UNITS/ML VIAL SC SCH ×2 (08:27→20:05)
[2021-05-22] MEDS: OLANZapine 5 MG TAB PO SCH ×2 (08:29→23:04)
[2021-05-22] MEDS: Zinc Sulfate 220 MG CAP PO SCH (08:29)
[2021-05-22] MEDS ORDERED: Sterile Water 10 ML ONE (08:45)
[2021-05-22] MEDS: OLANZapine 10 MG VIAL IM SCH ×2 (08:49→20:06)
[2021-05-22 12:10] LABS: Hemoglobin 11.7 g/dL (12.0-16.0); Mean Corpuscular HGB CONC 30.3 g/dL (32.0-36.0); Mean Corpuscular Hemoglobin 24.4 pg (27.0-31.0); Mean Corpuscular Volume 80.4 fL (78.0-98.0); RBC Distribution Width 14.7 % (11.5-14.5); Red Blood Cell (RBC) Count 4.81 mill/uL (4.20-5.40)
[2021-05-22 12:58] LABS: Eosinophils 1 % (0-10); Lymphocytes 15 % (21-51); MDiff Complete? YES; Mean Platelet Volume 9.3 fL (7.4-10.4); Monocytes 8 % (0-10); Neutrophil 76 % (42-75); Ovalocytes SLIGHT = 2-5 cells (100X) (0-1/hpf); Platelet Count 232 thou/uL (130-400); Platelet Morphology Comment Appears Adequate; Polychromasia SLIGHT = 2-3 cells (100X) (0-2/hpf); Target Cells SLIGHT = 2-5 cells (100X) (0-1/hpf); White Blood Cell (WBC) Count 5.7 thou/uL (4.8-10.8)
[2021-05-22] MEDS ORDERED: Insulin Regular 300 UNITS/3 ML VIAL IVP SCH (13:00)
[2021-05-22] MEDS ORDERED: Dextrose 50% Abboject 50 ML SYRINGE SLOW IVP SCH (13:00)
[2021-05-23 06:12] LABS: Anion Gap 11 mmol/L (10-20); BUN (Urea Nitrogen) 17 mg/dL (9.8-20.1); Calc. Creatinine Clearance 52 mL/min (70-130); Calcium 8.8 mg/dL (7.8-10.44); Carbon Dioxide 20 mmol/L (23-31); Chloride 100 mmol/L (98-107); Glucose 99 mg/dL (83-110); Sodium 127 mmol/L (136-145)
[2021-05-23] MEDS: Ascorbic Acid 500 mg Chewable Tablet PO SCH (07:40)
[2021-05-23] MEDS: Aspirin 81 mg Enteric Coated Tablet PO SCH (07:41)
[2021-05-23] MEDS: OLANZapine 5 MG TAB PO SCH ×2 (07:41→21:14)
[2021-05-23] MEDS: Zinc Sulfate 220 MG CAP PO SCH (07:42)
[2021-05-23] MEDS ORDERED: Sterile Water 10 ML ONE (09:42)
[2021-05-23] MEDS: OLANZapine 10 MG VIAL IM SCH ×2 (09:51→22:24)
[2021-05-23] MEDS: Heparin 5,000 UNITS/ML VIAL SC SCH ×2 (09:51→21:13)
[2021-05-24] MEDS: Heparin 5,000 UNITS/ML VIAL SC SCH ×2 (09:55→21:47)
[2021-05-24] MEDS: Zinc Sulfate 220 MG CAP PO SCH (09:55)
[2021-05-24] MEDS: Aspirin 81 mg Enteric Coated Tablet PO SCH (09:55)
[2021-05-24] MEDS: Ascorbic Acid 500 mg Chewable Tablet PO SCH (09:55)
[2021-05-24] MEDS: OLANZapine 5 MG TAB PO SCH ×2 (09:55→21:47)
[2021-05-24] MEDS: OLANZapine 10 MG VIAL IM SCH ×2 (09:55→21:47)
[2021-05-24 10:53] LABS: Hemoglobin 12.5 g/dL (12.0-16.0); Mean Corpuscular Hemoglobin 24.8 pg (27.0-31.0); RBC Distribution Width 13.9 % (11.5-14.5); Red Blood Cell (RBC) Count 5.05 mill/uL (4.20-5.40)
[2021-05-24 11:11] LABS: Anion Gap 13 mmol/L (10-20); BUN (Urea Nitrogen) 16 mg/dL (9.8-20.1); Calc. Creatinine Clearance 47 mL/min (70-130); Calcium 8.9 mg/dL (7.8-10.44); Carbon Dioxide 19 mmol/L (23-31); Chloride 101 mmol/L (98-107); Glucose 85 mg/dL (83-110); Potassium 4.3 mmol/L (3.5-5.1); Sodium 129 mmol/L (136-145)
[2021-05-24 11:15] LABS: #Eosinphils 0.1 thou/uL (0.0-0.7); #Lymphocytes 1.2 thou/uL (1.20-3.40); #Monocytes 0.6 thou/uL (0.11-0.59); #Neutrophils 2.3 thou/uL (1.40-6.50); %Basophils 1.1 % (0.0-1.0); %Eosinophils 2.4 % (0.0-10.0); %Lymphocytes 27.8 % (21.0-51.0); %Monocytes 13.7 % (0.0-10.0); MDiff Complete? YES; Mean Platelet Volume 8.4 fL (7.4-10.4); Microcytosis SLIGHT = 6-15 cells (100X) (0-5/hpf); Platelet Count 228 thou/uL (130-400); Platelet Morphology Comment Appears Adequate; Polychromasia SLIGHT = 2-3 cells (100X) (0-2/hpf); White Blood Cell (WBC) Count 4.2 thou/uL (4.8-10.8)
[2021-05-25] MEDS ORDERED: OLANZapine 10 MG VIAL IM SCH (02:45)
[2021-05-25] MEDS: Ascorbic Acid 500 mg Chewable Tablet PO SCH (08:23)
[2021-05-25] MEDS: Aspirin 81 mg Enteric Coated Tablet PO SCH (08:24)
[2021-05-25] MEDS: OLANZapine 5 MG TAB PO SCH ×2 (08:24→21:21)
[2021-05-25] MEDS: Zinc Sulfate 220 MG CAP PO SCH (08:24)
[2021-05-25] MEDS: Heparin 5,000 UNITS/ML VIAL SC SCH ×2 (08:25→21:21)
[2021-05-25] MEDS: OLANZapine 10 MG VIAL IM SCH ×2 (08:42→21:38)
[2021-05-25 08:57] LABS: #Basophils 0.1 thou/uL (0.0-0.2); #Eosinphils 0.1 thou/uL (0.0-0.7); #Monocytes 0.4 thou/uL (0.11-0.59); #Neutrophils 3.6 thou/uL (1.40-6.50); %Basophils 1.1 % (0.0-1.0); %Eosinophils 1.3 % (0.0-10.0); %Monocytes 8.4 % (0.0-10.0); %Neutrophils 69.2 % (42.0-75.0); Mean Corpuscular HGB CONC 31.5 g/dL (32.0-36.0); Mean Corpuscular Hemoglobin 24.2 pg (27.0-31.0); Mean Corpuscular Volume 76.7 fL (78.0-98.0); Mean Platelet Volume 7.7 fL (7.4-10.4); Platelet Count 267 thou/uL (130-400); RBC Distribution Width 14.1 % (11.5-14.5); Red Blood Cell (RBC) Count 4.97 mill/uL (4.20-5.40); White Blood Cell (WBC) Count 5.2 thou/uL (4.8-10.8)
[2021-05-25 09:11] VITALS: BMI 18.4
[2021-05-25 09:18] LABS: Anion Gap 11 mmol/L (10-20); BUN (Urea Nitrogen) 17 mg/dL (9.8-20.1); Calc. Creatinine Clearance 45 mL/min (70-130); Carbon Dioxide 22 mmol/L (23-31); Chloride 102 mmol/L (98-107); Glucose 103 mg/dL (83-110); Potassium 3.7 mmol/L (3.5-5.1); Sodium 131 mmol/L (136-145)
[2021-05-26 06:57] LABS: #Basophils 0.1 thou/uL (0.0-0.2); #Lymphocytes 1.1 thou/uL (1.20-3.40); #Monocytes 0.6 thou/uL (0.11-0.59); #Neutrophils 2.5 thou/uL (1.40-6.50); %Basophils 1.2 % (0.0-1.0); %Lymphocytes 25.4 % (21.0-51.0); %Monocytes 13.7 % (0.0-10.0); %Neutrophils 58.7 % (42.0-75.0); Hemoglobin 12.9 g/dL (12.0-16.0); Mean Corpuscular HGB CONC 30.7 g/dL (32.0-36.0); Mean Corpuscular Hemoglobin 24.2 pg (27.0-31.0); Mean Corpuscular Volume 78.7 fL (78.0-98.0); Mean Platelet Volume 7.9 fL (7.4-10.4); Platelet Count 250 thou/uL (130-400); RBC Distribution Width 14.2 % (11.5-14.5); Red Blood Cell (RBC) Count 5.35 mill/uL (4.20-5.40); White Blood Cell (WBC) Count 4.3 thou/uL (4.8-10.8)
[2021-05-26 07:22] LABS: Anion Gap 10 mmol/L (10-20); BUN (Urea Nitrogen) 13 mg/dL (9.8-20.1); Calc. Creatinine Clearance 44 mL/min (70-130); Calcium 9.1 mg/dL (7.8-10.44); Carbon Dioxide 23 mmol/L (23-31); Chloride 105 mmol/L (98-107); Glucose 79 mg/dL (83-110); Potassium 3.8 mmol/L (3.5-5.1); Sodium 134 mmol/L (136-145)
[2021-05-26] MEDS: Ascorbic Acid 500 mg Chewable Tablet PO SCH (08:35)
[2021-05-26] MEDS: Aspirin 81 mg Enteric Coated Tablet PO SCH (08:35)
[2021-05-26] MEDS: Zinc Sulfate 220 MG CAP PO SCH (08:35)
[2021-05-26] MEDS: OLANZapine 5 MG TAB PO SCH ×2 (08:35→21:18)
[2021-05-26] MEDS: Heparin 5,000 UNITS/ML VIAL SC SCH ×2 (08:35→21:18)
[2021-05-26] MEDS: OLANZapine 10 MG VIAL IM SCH ×2 (08:36→21:18)
[2021-05-26] MEDS ORDERED: Lorazepam 2 MG/ML VIAL SLOW IVP SCH (22:00)
[2021-05-27 06:56] LABS: #Eosinphils 0.1 thou/uL (0.0-0.7); #Lymphocytes 1.6 thou/uL (1.20-3.40); #Monocytes 0.7 thou/uL (0.11-0.59); #Neutrophils 2.5 thou/uL (1.40-6.50); %Lymphocytes 33.1 % (21.0-51.0); %Monocytes 14.1 % (0.0-10.0); %Neutrophils 49.8 % (42.0-75.0); Hemoglobin 13.3 g/dL (12.0-16.0); Mean Corpuscular HGB CONC 31.7 g/dL (32.0-36.0); Mean Corpuscular Hemoglobin 24.3 pg (27.0-31.0); Mean Corpuscular Volume 76.5 fL (78.0-98.0); Mean Platelet Volume 8.1 fL (7.4-10.4); Platelet Count 243 thou/uL (130-400); RBC Distribution Width 14.2 % (11.5-14.5); White Blood Cell (WBC) Count 4.9 thou/uL (4.8-10.8)
[2021-05-27 07:37] LABS: Anion Gap 13 mmol/L (10-20); BUN (Urea Nitrogen) 12 mg/dL (9.8-20.1); Calc. Creatinine Clearance 47 mL/min (70-130); Calcium 8.9 mg/dL (7.8-10.44); Carbon Dioxide 19 mmol/L (23-31); Chloride 107 mmol/L (98-107); Glucose 79 mg/dL (83-110); Potassium 3.3 mmol/L (3.5-5.1); Sodium 136 mmol/L (136-145)
[2021-05-27] MEDS ORDERED: Potassium Chloride 20 MEQ TAB PO SCH (10:45)
[2021-05-27] MEDS: Aspirin 81 mg Enteric Coated Tablet PO SCH (11:32)
[2021-05-27] MEDS: Heparin 5,000 UNITS/ML VIAL SC SCH ×2 (11:32→22:20)
[2021-05-27] MEDS: Zinc Sulfate 220 MG CAP PO SCH (11:33)
[2021-05-27] MEDS: Ascorbic Acid 500 mg Chewable Tablet PO SCH (11:33)
[2021-05-27] MEDS: OLANZapine 10 MG VIAL IM SCH ×2 (12:21→22:21)
[2021-05-27] MEDS: OLANZapine 5 MG TAB PO SCH ×2 (12:21→22:21)
[2021-05-28] MEDS: Zinc Sulfate 220 MG CAP PO SCH (08:17)
[2021-05-28] MEDS: Ascorbic Acid 500 mg Chewable Tablet PO SCH (08:17)
[2021-05-28] MEDS: Heparin 5,000 UNITS/ML VIAL SC SCH (08:18)
[2021-05-28] MEDS: Aspirin 81 mg Enteric Coated Tablet PO SCH (08:18)
[2021-05-28] MEDS: OLANZapine 5 MG TAB PO SCH (08:18)
[2021-05-28] MEDS: OLANZapine 10 MG VIAL IM SCH (08:18)
[2021-05-28 08:55] VITALS: BP 101/69; TEMP 98.6
== END 2021-05-28 15:28 | DRG 56 ==
LOC: ERS 12:38 → ERHOLD 17:36 → 2SW 23:22 → T4-A 05-23 15:15
PROVIDERS: ADMIT Hospitalist; ATTEND Internal Medicine
PROC: 8E0ZXY6 Isolation (ICD-10-PCS; principal; 2021-05-14)
DX: G30.9 Alzheimer's disease, unspecified (principal); Z66 Do not resuscitate; U07.1 COVID-19; G92.8 Other toxic encephalopathy; J80 Acute respiratory distress syndrome; J12.82 Pneumonia due to coronavirus disease 2019; N17.9 Acute kidney failure, unspecified; E87.2 Acidosis; E87.0 Hyperosmolality and hypernatremia; E44.0 Moderate protein-calorie malnutrition; Z68.1 Body mass index [BMI] 19.9 or less, adult; F02.81 Dementia in other diseases classified elsewhere, unspecified severity, with behavioral disturbance; F05 Delirium due to known physiological condition; E22.2 Syndrome of inappropriate secretion of antidiuretic hormone; E87.6 Hypokalemia; I10 Essential (primary) hypertension; E86.0 Dehydration; F41.9 Anxiety disorder, unspecified; E87.8 Other disorders of electrolyte and fluid balance, not elsewhere classified; E83.41 Hypermagnesemia; F32.A Depression, unspecified; K21.9 Gastro-esophageal reflux disease without esophagitis; R13.12 Dysphagia, oropharyngeal phase; G25.71 Drug induced akathisia; E86.9 Volume depletion, unspecified; I95.2 Hypotension due to drugs; T42.4X5A Adverse effect of benzodiazepines, initial encounter; Z78.1 Physical restraint status; Z87.440 Personal history of urinary (tract) infections; Z90.710 Acquired absence of both cervix and uterus; Z90.722 Acquired absence of ovaries, bilateral; Z88.2 Allergy status to sulfonamides; Z88.0 Allergy status to penicillin; Z79.899 Other long term (current) drug therapy; Z91.013 Allergy to seafood
CPT/HCPCS: 36415; 51701; 70450; 71045; 72170; 80048; 80053; 81003; 81015; 82570; 82607; 82746; 83690; 83735; 83930; 83935; 84100; 84300; 84443; 85025; 86140; 87086; 93005; 96365; 96366; 96375; J1644; J1815; J2060; J2358; J3480; J7030; J7070; S0028; U0002

== ENCOUNTER 2021-10-24 10:01 | Emergency (ER) | payer MEDICARE ==
[2021-10-24 10:25] LABS: #Basophils 0.1 thou/uL (0.0-0.2); #Lymphocytes 0.7 thou/uL (1.20-3.40); #Monocytes 0.5 thou/uL (0.11-0.59); #Neutrophils 5.9 thou/uL (1.40-6.50); %Basophils 0.9 % (0.0-1.0); %Eosinophils 0.7 % (0.0-10.0); %Lymphocytes 9.5 % (21.0-51.0); %Neutrophils 81.9 % (42.0-75.0); Hemoglobin 13.3 g/dL (12.0-16.0); Mean Corpuscular HGB CONC 32.7 g/dL (32.0-36.0); Mean Corpuscular Volume 76.5 fL (78.0-98.0); Mean Platelet Volume 8.6 fL (7.4-10.4); Platelet Count 262 thou/uL (130-400); RBC Distribution Width 14.6 % (11.5-14.5); Red Blood Cell (RBC) Count 5.31 mill/uL (4.20-5.40); White Blood Cell (WBC) Count 7.2 thou/uL (4.8-10.8)
[2021-10-24 10:45] LABS: Bilirubin Negative (Negative); Blood, Urine Negative (Negative); Clarity Clear (Clear); Glucose, Urine (Dipstick) Normal (Negative); Ketone, Urine Negative (Negative); Leukocyte Negative Leu/uL (Negative); Nitrite Negative (Negative); Protein, Urine (Dipstick) Negative (Neg-Trace); Specific Gravity, Urine 1.015 (1.002-1.036); Urobilinogen Normal mg/dL (Less than 2)
[2021-10-24 10:47] LABS: ALT (SGPT) 48 U/L (8-55); AST (SGOT) 61 U/L (5-34); Albumin 3.9 g/dL (3.4-4.8); Alkaline Phosphatase 103 U/L (40-110); Anion Gap 14 mmol/L (10-20); BUN (Urea Nitrogen) 17 mg/dL (9.8-20.1); Bilirubin, Total 0.5 mg/dL (0.2-1.2); Calc. Creatinine Clearance 0 mL/min (70-130); Calcium 8.7 mg/dL (7.8-10.44); Carbon Dioxide 20 mmol/L (23-31); Chloride 104 mmol/L (98-107); Globulin 4.4 g/dL (2.4-3.5); Glucose 90 mg/dL (83-110); Protein, Total 8.3 g/dL (5.8-8.1); Sodium 134 mmol/L (136-145)
[2021-10-24] MEDS ORDERED: Iopamidol-370 76% 500 ML 1 ML ONE (15:13)
== END 2021-10-24 13:05 ==
LOC: ERS 10:01
DX: R19.7 Diarrhea, unspecified (principal); I10 Essential (primary) hypertension; Z79.899 Other long term (current) drug therapy
CPT/HCPCS: 36415; 51701; 74177; 80053; 81003; 83605; 85025; 87040; 87077; 87086; 87324; 87449; 93005; Q9967

== ENCOUNTER 2021-10-24 20:24 | Inpatient (IN) | payer MEDICARE ==
[2021-10-24 21:22] LABS: #Lymphocytes 0.5 thou/uL (1.20-3.40); #Monocytes 0.7 thou/uL (0.11-0.59); #Neutrophils 6.5 thou/uL (1.40-6.50); %Basophils 0.1 % (0.0-1.0); %Eosinophils 0.5 % (0.0-10.0); %Lymphocytes 6.9 % (21.0-51.0); %Monocytes 9.1 % (0.0-10.0); %Neutrophils 83.5 % (42.0-75.0); Hemoglobin 12.3 g/dL (12.0-16.0); Mean Corpuscular HGB CONC 31.7 g/dL (32.0-36.0); Mean Corpuscular Volume 75.8 fL (78.0-98.0); Mean Platelet Volume 8.4 fL (7.4-10.4); Platelet Count 266 thou/uL (130-400); RBC Distribution Width 14.7 % (11.5-14.5); Red Blood Cell (RBC) Count 5.15 mill/uL (4.20-5.40); White Blood Cell (WBC) Count 7.8 thou/uL (4.8-10.8)
[2021-10-24 21:44] LABS: ALT (SGPT) 49 U/L (8-55); AST (SGOT) 54 U/L (5-34); Albumin 3.7 g/dL (3.4-4.8); Alkaline Phosphatase 94 U/L (40-110); Anion Gap 13 mmol/L (10-20); BUN (Urea Nitrogen) 17 mg/dL (9.8-20.1); Bilirubin, Total 0.3 mg/dL (0.2-1.2); Calc. Creatinine Clearance 0 mL/min (70-130); Calcium 8.5 mg/dL (7.8-10.44); Carbon Dioxide 19 mmol/L (23-31); Chloride 106 mmol/L (98-107); Globulin 3.9 g/dL (2.4-3.5); Glucose 107 mg/dL (83-110); Potassium 3.6 mmol/L (3.5-5.1); Protein, Total 7.6 g/dL (5.8-8.1); Sodium 134 mmol/L (136-145)
[2021-10-24] MEDS ORDERED: Cefepime 2 GM VIAL ONE (22:07)
[2021-10-24] MEDS ORDERED: Ondansetron PF 4 MG/2 ML Vial ONE (23:33)
[2021-10-24] MEDS ORDERED: Acetaminophen 650 MG Suppository ONE (23:33)
[2021-10-24] MEDS ORDERED: metroNIDAZOLE 500 MG/100 ML BAG ONE (23:36)
[2021-10-24] MEDS ORDERED: Ondansetron PF 4 MG/2 ML Vial IVP PRN (23:39)
[2021-10-24] MEDS ORDERED: Acetaminophen 500 MG TAB PO PRN (23:42)
[2021-10-25 03:15] VITALS: BMI 18.6
[2021-10-25] MEDS: metroNIDAZOLE 500 MG in Premix Bag 1 BAG IVPB SCH ×3 (05:35→21:19)
[2021-10-25 06:45] LABS: #Lymphocytes 0.8 thou/uL (1.20-3.40); #Monocytes 0.7 thou/uL (0.11-0.59); #Neutrophils 4.7 thou/uL (1.40-6.50); %Basophils 0.4 % (0.0-1.0); %Eosinophils 0.2 % (0.0-10.0); %Monocytes 11.3 % (0.0-10.0); Hemoglobin 11.3 g/dL (12.0-16.0); Mean Corpuscular HGB CONC 31.3 g/dL (32.0-36.0); Mean Corpuscular Hemoglobin 23.9 pg (27.0-31.0); Mean Corpuscular Volume 76.6 fL (78.0-98.0); Mean Platelet Volume 8.8 fL (7.4-10.4); Platelet Count 255 thou/uL (130-400); RBC Distribution Width 14.7 % (11.5-14.5); Red Blood Cell (RBC) Count 4.73 mill/uL (4.20-5.40); White Blood Cell (WBC) Count 6.3 thou/uL (4.8-10.8)
[2021-10-25 07:09] LABS: ALT (SGPT) 42 U/L (8-55); AST (SGOT) 45 U/L (5-34); Albumin 3.3 g/dL (3.4-4.8); Alkaline Phosphatase 81 U/L (40-110); Anion Gap 11 mmol/L (10-20); BUN (Urea Nitrogen) 15 mg/dL (9.8-20.1); Bilirubin, Total 0.3 mg/dL (0.2-1.2); Calc. Creatinine Clearance 42 mL/min (70-130); Calcium 8.2 mg/dL (7.8-10.44); Carbon Dioxide 20 mmol/L (23-31); Chloride 109 mmol/L (98-107); Globulin 3.4 g/dL (2.4-3.5); Glucose 83 mg/dL (83-110); Magnesium 2.1 mg/dL (1.6-2.6); Potassium 3.6 mmol/L (3.5-5.1); Protein, Total 6.7 g/dL (5.8-8.1); Sodium 136 mmol/L (136-145)
[2021-10-25] MEDS: Pantoprazole 40 MG VIAL IVP SCH (08:53)
[2021-10-25] MEDS ORDERED: Enoxaparin Sodium 40 MG/0.4 ML SYRINGE SC SCH (09:00)
[2021-10-25 16:23] LABS: SARS-CoV-2 PCR by NAA Not Detected (NotDetected)
[2021-10-26] MEDS: metroNIDAZOLE 500 MG in Premix Bag 1 BAG IVPB SCH ×2 (05:31→14:40)
[2021-10-26 06:11] LABS: #Monocytes 0.5 thou/uL (0.11-0.59); #Neutrophils 4.3 thou/uL (1.40-6.50); %Basophils 0.3 % (0.0-1.0); %Lymphocytes 17.6 % (21.0-51.0); %Monocytes 8.3 % (0.0-10.0); %Neutrophils 73.8 % (42.0-75.0); Hemoglobin 12.1 g/dL (12.0-16.0); Mean Corpuscular HGB CONC 31.6 g/dL (32.0-36.0); Mean Corpuscular Hemoglobin 23.9 pg (27.0-31.0); Mean Corpuscular Volume 75.7 fL (78.0-98.0); Mean Platelet Volume 9.2 fL (7.4-10.4); Platelet Count 265 thou/uL (130-400); RBC Distribution Width 14.8 % (11.5-14.5); Red Blood Cell (RBC) Count 5.06 mill/uL (4.20-5.40); White Blood Cell (WBC) Count 5.9 thou/uL (4.8-10.8)
[2021-10-26 06:18] LABS: ALT (SGPT) 34 U/L (8-55); AST (SGOT) 40 U/L (5-34); Albumin 3.4 g/dL (3.4-4.8); Alkaline Phosphatase 85 U/L (40-110); Anion Gap 14 mmol/L (10-20); BUN (Urea Nitrogen) 15 mg/dL (9.8-20.1); Bilirubin, Total 0.4 mg/dL (0.2-1.2); Calc. Creatinine Clearance 38 mL/min (70-130); Calcium 8.5 mg/dL (7.8-10.44); Carbon Dioxide 21 mmol/L (23-31); Chloride 106 mmol/L (98-107); Globulin 3.8 g/dL (2.4-3.5); Glucose 77 mg/dL (83-110); Potassium 3.2 mmol/L (3.5-5.1); Protein, Total 7.2 g/dL (5.8-8.1); Sodium 138 mmol/L (136-145)
[2021-10-26] MEDS: Pantoprazole 40 MG VIAL IVP SCH (08:59)
[2021-10-26] MEDS ORDERED: Enoxaparin Sodium 30 MG/0.3 ML SYRINGE SC SCH (09:00)
[2021-10-26] MEDS: Potassium Chloride 20 MEQ in Premix Bag 1 BAG IVPB SCH ×2 (09:25→11:35)
[2021-10-26 11:52] VITALS: TEMP 97.9
[2021-10-26 16:40] VITALS: BP 129/83
== END 2021-10-26 17:04 | disposition home or self-care (01) | DRG 872 ==
LOC: ERS 20:24 → T4-A 23:26 → OBSVTOIN 10-25 20:57
PROVIDERS: ADMIT Internal Medicine; ATTEND Internal Medicine
DX: A41.89 Other specified sepsis (principal); E87.1 Hypo-osmolality and hyponatremia; F02.81 Dementia in other diseases classified elsewhere, unspecified severity, with behavioral disturbance; Z23 Encounter for immunization; Z20.822 Contact with and (suspected) exposure to COVID-19; A08.4 Viral intestinal infection, unspecified; K21.9 Gastro-esophageal reflux disease without esophagitis; G30.9 Alzheimer's disease, unspecified; F41.9 Anxiety disorder, unspecified; Z87.440 Personal history of urinary (tract) infections; Z90.710 Acquired absence of both cervix and uterus; Z98.890 Other specified postprocedural states; Z88.0 Allergy status to penicillin; Z88.2 Allergy status to sulfonamides; Z91.013 Allergy to seafood
CPT/HCPCS: 36415; 51701; 74177; 80053; 81003; 83605; 83735; 85025; 87040; 87077; 87086; 87324; 87449; 93005; 96366; 96374; 96375; C9113; G0378; J0692; J1650; J1956; J2405; J3480; Q9967; U0003; U0005